=== PATIENT | male | born 1965 | race Caucasian/White ===

== ENCOUNTER 2017-09-10 06:13 | Day surgery (SDC) | payer OTHER ==
[~2017-09-10] VITALS: Ht 190.5 cm; Wt 108.9 kg
[2017-09-10] MEDS ORDERED: LIPITOR10 MG PO (07:04)
[2017-09-10] MEDS ORDERED: CYMBALTA60 MG PO (07:04)
[2017-09-10] MEDS ORDERED: TIZANIDINE HCL4 M1 PO (07:04)
[2017-09-10] MEDS ORDERED: CARDIZEM60 MG PO (07:05)
[2017-09-10] MEDS ORDERED: LYRICA100 MG PO (07:06)
[2017-09-10] MEDS ORDERED: HYDROXYZINE HCL25 MG PO (07:06)
[2017-09-10] MEDS ORDERED: LEVOFLOXACIN250 MG PO (07:07)
[2017-09-10] MEDS ORDERED: PANTOPRAZOLE SO40 MG PO (07:07)
[2017-09-10] MEDS ORDERED: CALCIUM ACETAT667 M2 PO (07:08)
[2017-09-10] MEDS ORDERED: RENVELA800 MG PO (07:08)
[2017-09-10] MEDS ORDERED: OXYCODONE HCL15 MG PO (07:09)
[2017-09-10] MEDS ORDERED: DURAGESIC50 MCG TD (07:09)
[2017-09-10] MEDS ORDERED: SPIRIVA RESPIMAT4 GM IH (07:10)
== END 2017-09-10 09:05 | disposition home or self-care (01) ==
LOC: CATH 06:13
DX: T82.858A Stenosis of other vascular prosthetic devices, implants and grafts, initial encounter (principal); Y83.2 Surgical operation with anastomosis, bypass or graft as the cause of abnormal reaction of the patient, or of later complication, without mention of misadventure at the time of the procedure; N18.6 End stage renal disease; Z99.2 Dependence on renal dialysis; J44.9 Chronic obstructive pulmonary disease, unspecified; Z87.891 Personal history of nicotine dependence
CPT/HCPCS: 87641; C1725; C1769; C1894; J1644; J2250; J3010